=== PATIENT | female | born 1970 | race Hispanic/Latino ===

== ENCOUNTER 2024-09-12 23:29 | Emergency (ER) | payer SELFPAY ==
[2024-09-12] MEDS ORDERED: Mag-Al Plus 1200/1200/120 MG (30 mL) UDCUP ONE (23:53)
[2024-09-12] MEDS ORDERED: Lidocaine 2% Viscous 100 ML BOTTLE ONE (23:53)
== END 2024-09-13 00:34 | disposition home or self-care (01) ==
LOC: NAV ERS 23:29
DX: K29.00 Acute gastritis without bleeding (principal); I10 Essential (primary) hypertension; E11.9 Type 2 diabetes mellitus without complications; Z79.84 Long term (current) use of oral hypoglycemic drugs; Z79.899 Other long term (current) drug therapy
CPT/HCPCS: 99283